=== PATIENT | male | born 1930 | race Caucasian/White ===

== ENCOUNTER 2017-01-13 15:10 | Inpatient (IN) ==
--- NOTE | 2017-01-13 16:26 | Emergency Department Note ---
Arrival - Arrival Chief Complaint: Abdominal / Flank Pain Stated Complaint: VOMITING, STOMACH PAIN, SEVERE DIARRHEA ED Nursing Triage Note: N/V/D ABD PAIN ONSET THIS AM, TRANSFERRED POV FROM [facility] DUE TO HERNIA Mode of Arrival: Wheelchair Limitations: No Limitations Source: Patient Time Seen by Provider: 01/13/17 16:23 - History of Present Illness HPI Narrative: This 86-year-old white male presents with a history of 2 bouts of diarrhea last night followed by intense GI vomiting and right lower abdomen abdominal pain. His evaluation at [facility] revealed an incarcerated right inguinal hernia causing a small bowel obstruction. For this reason he was referred on to us. Notable on arrival here is a resolution of all symptoms. Currently he appears stable and pain-free. Onset (ago): hour(s) (Patient presents 24 hours post onset of symptoms) Allergies/Adverse Reactions: Allergies Allergy/AdvReac Type Severity Reaction Status Date / Time No Known Allergies Allergy Verified 01/13/17 15:48 Home Medications: Home Medications Medication Instructions Recorded Confirmed Type Atorvastatin [Lipitor] 10 mg PO DAILY 02/23/15 09/04/15 History Isosorbide Mononitrate [Imdur] 30 mg PO DAILY 02/23/15 09/04/15 History Probenecid [Benemid] 1,000 mg PO BID 02/23/15 09/04/15 History Terazosin HCl 10 mg PO BEDTIME 02/23/15 09/04/15 History Apixaban [Eliquis] 5 mg PO BID #60 tablet 02/25/15 09/04/15 Rx Aspirin EC Tab 81 mg PO DAILY tablet 02/25/15 09/04/15 Rx Magnesium Chloride [Slow Mag] 64 mg PO DAILY tablet 02/25/15 09/04/15 Rx Sotalol [Betapace] 80 mg PO BID #60 tablet 02/25/15 09/04/15 Rx Ciprofloxacin Tab [Cipro Tab] 500 mg PO Q12HR #20 tablet 09/04/15 Rx Cyanocobalamin/Folic AC/Vit B6 1 each PO DAILY 09/04/15 09/04/15 History [Folbic Tablet] Finasteride [Finasteride] 1 tablet PO DAILY 09/04/15 09/04/15 History Phenazopyridine [Pyridium] 95 mg PO TID W/MEALS #30 tablet 09/04/15 Rx Review of System - Review of System Gastrointestinal: Present: as per HPI Medical,Surgical,& Family Hx - Medical History Cardio: History of: Cardiac Dysrhythmia (atrial fibrillation on eliquis), CAD ( remote history of a coronary stent), Hypertension HEENT: History of: Eye Problem (WEARS GLASSES), HEENT Problems (NOSE BLEEDS) Rheumatology: History of;: Gout, Rheumatological Problems Gastrointestinal: History of: Polyps Hematology: History of: Anemia (BORDERLINE) - Surgical History Cardiac Surgeries: Sugical HX of: Cardiac Catheterization (STENTS) HEENT Surgeries: Surgical HX of: Tonsilectomy & Adenoidectomy Abdominal Surgeries: Surgical HX of: Cholecystectomy, Colonoscopy Orthopedic Surgeries: Surgical HX of;: Total Knee Replacement (RIGHT KNEE) - Family History Family History: Reports;: Family Cancer, Family Diabetes, Family Heart Disease, Family Hypertension Denies;: Family Stroke - Social History Smoking Status: Never smoker Exam Physical Examination: GENERAL: Well developed, well nourished elderly white male in no acute distress. HEENT: Normocephalic. No trauma. Moist mucous membranes. EOMI. PERRLA. ENT NML NECK: Supple. No adenopathy. CARDIAC: Regular. No murmurs. Heart rate 71 CHEST: Clear to auscultation. No respiratory distress. O2 sat 96% ABDOMEN: Soft. Nontender. No palpable right inguinal mass. Hypoactive bowel sounds. EXTREMITIES: No trauma. Normal ROM. No pedal edema. SKIN: No diaphoresis. No rash. NEURO: Alert. Neuro intact. No focal deficits. Vital Signs: Vital Signs Temperature 97.9 F 01/13/17 15:39 Pulse Rate 71 01/13/17 15:39 Respiratory Rate 18 01/13/17 15:39 Blood Pressure 158/74 01/13/17 15:39 O2 Sat by Pulse Oximetry 96 01/13/17 15:39 Course - Reevaluation(s) Reevaluation #1: Advised patient he will be admitted for further evaluation - Consultations Consultation #1: Discussed with Dr. Dover who will evaluate the patient after admission Results - Labs Labs: Lab per [facility] reveals sodium 147, BUN 818, creatinine 1.1, sodium 143, potassium 4.1, lipase 221, white blood cell count 9000, hematocrit 38, INR 0.97 - Diagnostic Findings Procedure: CT Abdomen and Pelvis: image reviewed by me, report reviewed by me ( Per [facility] distal small bowel obstruction due to large right inguinal hernia containing nondistended small bowel and fluid, small left anterior lateral abdominal wall hernia containing a short nondistended segment of small bowel and some fat as well as colonic diverticulosis) Disposition Clinical Impression: Right inguinal hernia, Left abdominal wall hernia, Atrial fibrillation, Hypertension, Renal stone disease, CAD post stents, Hyperlipidemia, Prostatic hypertrophy Case discussed with: patient, patient's family Disposition: Still a Patient Condition: Stable Time of Disposition: 16:38
[2017-01-13] MEDS ORDERED: ONDANSETRON 4 MG/2 ML VIAL IV PRN (16:40)
[2017-01-13 16:43] LABS: Basophils % 0.3 % (0.0-0.8); Eosinophils % 0.2 % (0.00-10.9); Hematocrit 37.7 VOL% (42.0-52.0); Hemoglobin 13.5 GM/DL (14.0-18.0); Immature Granulocytes % 0.5 %; Immature Granulocytes Absolute 0.04 #; Lymphocytes # 1.2 10*3/uL (1.4-4.0); Lymphocytes % 14.1 % (21.2-54.2); Mean Corpuscular HGB Conc 35.8 GM/DL (32-36); Mean Corpuscular Hemoglobin 34 PG (27-34); Mean Corpuscular Volume 95.9 FL (87-102); Mean Platelet Volume 9.5 FL (9.6-12.0); Monocytes # 0.6 10*3/uL (0.11-0.8); Monocytes % 6.8 % (1.7-12.7); Neutrophils # 6.9 10*3/uL (1.4-7.4); Neutrophils % 78.1 % (38.7-73.9); Platelet Count 127 T/CUMM (130-400); Red Blood Count 3.93 MC/CUMM (3.8-5.5); Red Cell Distribution Width 13.2 % (9.3-17.3); White Blood Count 8.8 T/CUMM (4-12)
--- NOTE | 2017-01-13 17:01 | EKG Report ---
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
[2017-01-13 17:03] LABS: Lactic Acid 0.8 MMOL/L (0.4-2.0)
[2017-01-13 17:04] LABS: Albumin 3.2 G/DL (3.4-5.0); Bilirubin,Total 0.5 MG/DL (0.2-1.0); Calcium 8.7 MG/DL (8.5-10.1); Osmolality,Calculated 284.1 MOS/KG (273-304); Total Protein 6.6 G/DL (6.4-8.3)
--- NOTE | 2017-01-13 17:04 | XRay Report ---
History: Shortness of breath Date: 01/13/2017 Study: Chest x-ray AP portable Comparison exam: July 08, 2015 The cardiac silhouette is upper normal. There is no mediastinal mass. The pulmonary vasculature is not engorged. There is some minor platelike subsegmental atelectasis or scar in the right lower lung. The lungs and pleural spaces are otherwise clear. Shallow breath. Osseous structures are unchanged. Degenerative changes of the shoulders are present, with probable chronic rotator cuff injury bilaterally. Impression: Minor platelike scar or atelectasis right lung base. No definite acute process compared to the previous study otherwise PROCEDURE INTERPRETED AT [facility] DEPARTMENT OF RADIOLOGY Final Report Signed by: Dr. Princess Roberts
--- NOTE | 2017-01-13 18:27 | General Surg History&Physical ---
Assessment and Plan - Time spent with patient Time spent with patient: Greater than 30 minutes (1) Incarcerated right inguinal hernia Status: Acute Assessment and plan: He had bowel obstruction from an incarcerated running hernia which is since reduced. I can feel bowel moving in and out of the hernia. His testicle is in a normal position. It is nontender and he has no abdominal tenderness now. I doubt that he had a strangulated or gangrenous bowel. Patient would like to have this repaired which I think is reasonable. He does have associated comorbidities including coronary artery disease and atrial fibrillation. His last dose of Eliquis was about 48 hours ago. He regularly sees Dr. ahuja. We can consult cardiology in the morning if they feel he is an acceptable risk for surgery with going ahead and repairing his inguinal hernia prevent recurrence. Procedure and risks were outlined in great detail including preoperative complications related to his comorbidities also the infection, bleeding, hematoma, chronic pain, recurrence, mesh complications, etc. he understands these risks and wishes to proceed Current Visit: Yes (2) Paroxysmal atrial fibrillation Status: Acute Assessment and plan: We will hold his Eliquis and consult cardiology. If they feel he is an acceptable risk for surgery we can go ahead probably tomorrow. Current Visit: No History of Present Illness Chief complaint: Abdominal pain History of present illness: Mr. Mayfield is a 86 year old male Who has had a known right inguinal hernia for years. He suddenly had abdominal pain nausea and vomiting today. His pain was sudden onset. He went to the [place] emergency room where a CT scan was obtained showing an incarcerated right inguinal hernia containing small bowel associated small bowel obstruction. After he was transferred here his pain suddenly resolved and his hernia reduced spontaneously he has no abdominal pain now and no nausea or vomiting. He describes the pain as being severe and cramping and mostly in the right upper quadrant. He states that it felt better if he laid flat and went away when he laid flat. Home Medications Medication Instructions Recorded Confirmed Type Atorvastatin [Lipitor] 10 mg PO DAILY 02/23/15 09/04/15 History Isosorbide Mononitrate [Imdur] 30 mg PO DAILY 02/23/15 09/04/15 History Probenecid [Benemid] 1,000 mg PO BID 02/23/15 09/04/15 History Terazosin HCl 10 mg PO BEDTIME 02/23/15 09/04/15 History Apixaban [Eliquis] 5 mg PO BID #60 tablet 02/25/15 09/04/15 Rx Aspirin EC Tab 81 mg PO DAILY tablet 02/25/15 09/04/15 Rx Magnesium Chloride [Slow Mag] 64 mg PO DAILY tablet 02/25/15 09/04/15 Rx Sotalol [Betapace] 80 mg PO BID #60 tablet 02/25/15 09/04/15 Rx Ciprofloxacin Tab [Cipro Tab] 500 mg PO Q12HR #20 tablet 09/04/15 Rx Cyanocobalamin/Folic AC/Vit B6 1 each PO DAILY 09/04/15 09/04/15 History [Folbic Tablet] Finasteride [Finasteride] 1 tablet PO DAILY 09/04/15 09/04/15 History Phenazopyridine [Pyridium] 95 mg PO TID W/MEALS #30 tablet 09/04/15 Rx Allergies Allergy/AdvReac Type Severity Reaction Status Date / Time No Known Allergies Allergy Verified 01/13/17 15:48 Medical,Surgical,& Family Hx - Medical History Cardio: History of: Cardiac Dysrhythmia (atrial fibrillation on eliquis), CAD ( remote history of a coronary stent), Hypertension HEENT: History of: Eye Problem (WEARS GLASSES), HEENT Problems (NOSE BLEEDS) Rheumatology: History of;: Gout, Rheumatological Problems Gastrointestinal: History of: Polyps Hematology: History of: Anemia (BORDERLINE) - Surgical History Cardiac Surgeries: Sugical HX of: Cardiac Catheterization (STENTS) HEENT Surgeries: Surgical HX of: Tonsilectomy & Adenoidectomy Abdominal Surgeries: Surgical HX of: Cholecystectomy, Colonoscopy Orthopedic Surgeries: Surgical HX of;: Total Knee Replacement (RIGHT KNEE) - Family History Family History: Reports;: Family Cancer, Family Diabetes, Family Heart Disease, Family Hypertension Denies;: Family Stroke - Social History Smoking Status: Never smoker Exam - Constitutional Vitals: Period Temp Pulse Resp BP Sys/Restrepo Pulse Ox Last 24 Hr 97.9 F-97.9 F 64-73 18-18 150-168/72-90 95-97 General appearance: no acute distress - Head Head exam: Present: normocephalic - Eye Eye exam: Absent: scleral icterus - ENT Mouth exam: Present: normal voice - Neck Neck exam: Present: trachea midline. Absent: tenderness - Respiratory Respiratory exam: Present: clear to auscultation bilaterally. Absent: accessory muscle use - Cardiovascular Cardiovascular exam: Present: RRR - GI/Abdominal GI/Abdominal exam: Present: hernia (Reducible right inguinal region), soft. Absent: distended, guarding, mass, tenderness, rebound - Extremities Exam Extremities exam: Absent: edema - Neurological Exam Neurological exam: Present: alert, oriented X3. Absent: motor sensory deficit Speech: Present: normal - Skin Skin exam: Present: normal color - Constitutional Constitutional: Absent: anorexia, chills, fever(s), weight loss - Cardiovascular Cardiovascular: Absent: chest pain at rest, chest pain with activity, dyspnea, dyspnea on exertion, syncope - Respiratory Respiratory: Absent: dyspnea, hemoptysis, dyspnea on exertion - Gastrointestinal Gastrointestinal: Present: abdominal pain, bloating, cramping, diarrhea, nausea , vomiting. Absent: hematemesis, hematochezia, melena, jaundice - Genitourinary Genitourinary: Absent: hematuria - Musculoskeletal Musculoskeletal: Present: back pain - Neurological Neurological: Absent: focal weakness, syncope - Endocrine Endocrine: Absent: polyuria Hematologic/Lymphatic: Present: easy bleeding, easy bruising Results - Labs CBC & BMP: 01/13/17 16:25 01/13/17 16:25 Lab Results: I have reviewed the past 24 hour labs
[2017-01-13] MEDS: FINASTERIDE 5 MG TABLET PO SCH (20:50)
[2017-01-13] MEDS ORDERED: ATORVASTATIN 10 MG TABLET PO SCH (21:00)
[2017-01-13] MEDS ORDERED: TERAZOSIN 5 MG CAPSULE PO SCH (21:00)
--- NOTE | 2017-01-14 07:33 | General Surgery Progress Note ---
Assessment and Plan (1) Incarcerated right inguinal hernia Status: Acute Assessment and plan: He had bowel obstruction from an incarcerated running hernia which is since reduced. I can feel bowel moving in and out of the hernia. His testicle is in a normal position. It is nontender and he has no abdominal tenderness now. I doubt that he had a strangulated or gangrenous bowel. Patient would like to have this repaired which I think is reasonable. He does have associated comorbidities including coronary artery disease and atrial fibrillation. His last dose of Eliquis was about 48 hours ago. He regularly sees Dr. ahuja. We can consult cardiology in the morning if they feel he is an acceptable risk for surgery with going ahead and repairing his inguinal hernia prevent recurrence. Procedure and risks were outlined in great detail including preoperative complications related to his comorbidities also the infection, bleeding, hematoma, chronic pain, recurrence, mesh complications, etc. he understands these risks and wishes to proceed 01/14: He feels much better. He denies abdominal pain. He needs right inguinal hernia repair if it is okay with cardiology. We have consulted cardiology this morning. They feel that he is acceptable risk for surgery I could proceed today. If they need any cardiac evaluation or workup I think it is safe to delay his surgery if needed. Current Visit: Yes (2) Paroxysmal atrial fibrillation Status: Acute Assessment and plan: We will hold his Eliquis and consult cardiology. If they feel he is an acceptable risk for surgery we can go ahead probably tomorrow. Current Visit: No Subjective Patient reports: Present: feels better, pain is less. Absent: nausea, vomiting Exam - Constitutional Vitals: Period Temp Pulse Resp BP Sys/Restrepo Pulse Ox Last 24 Hr 97.0 F-98.9 F 64-77 18-18 122-168/57-90 93-99 General appearance: no acute distress - Respiratory Respiratory exam: Absent: accessory muscle use - GI/Abdominal GI/Abdominal exam: Present: soft. Absent: distended, tenderness Results - Labs CBC & BMP: 01/13/17 16:25 01/13/17 16:25 Quality Measures - VTE Contraindication to Pharmacological VTE Prophylaxis: Already on Theraputic Agent , No Prophylaxis Needed
--- NOTE | 2017-01-14 10:34 | Cardiology Consult Note ---
Mariano Lam April RN, am scribing for, and in the presence of, Dustin Sharif MD 10:29. Assessment and Plan - Time spent with patient Time spent with patient: Greater than 30 minutes (Due to assessment, planning, documentation, medication review) (1) Preoperative cardiovascular examination Status: Acute Current Visit: Yes (2) Hypertension Status: Chronic Assessment and plan: Home blood pressure medications have been restarted. Blood pressure is stable. Current Visit: Yes (3) Chronic anticoagulation Status: Chronic Assessment and plan: This is currently on hold in anticipation of surgery. Current Visit: Yes (4) Incarcerated right inguinal hernia Status: Acute Assessment and plan: This is being followed by Dr. Jazzmine SIMMS. Current Visit: Yes (5) Coronary disease Status: Chronic Assessment and plan: Patient is without chest pain, EKG without any acute changes. Current Visit: Yes Qualifiers: Coronary Disease-Associated Artery/Lesion type: [place] artery [place] vs. transplanted heart: [place] heart Associated angina: without angina Qualified Code(s): I25.10 - Atherosclerotic heart disease of [place] coronary artery without angina pectoris (6) Hyperlipidemia Status: Chronic Assessment and plan: Takes Lipitor 10 mg daily, this has been continued. Current Visit: Yes (7) Paroxysmal atrial fibrillation Status: Chronic Assessment and plan: He is currently in sinus rhythm. Current Visit: No History of Present Illness - Data of Consult Patient: known to practice within the last 3 years Consult date: 01/13/17 Requesting Physician: Josh Dover III. 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 Denis Rodrigues Mr. Mayfield is a 86 year old male with a history of CAD, dyslipidemia, hypertension, paroxysmal atrial fibrillation, and kidney stone. He is anticoagulated on Eliquis. This has been decreased to 2.5 mg Saturday and Saturday because of recent nosebleeds. He denies any nosebleeds since having this does decreased. He had heart catheterization April 26, 2003 with stenting of the junction of the mid and distal LAD, the mid LAD, and the proximal LAD. Heart catheterization February 27, 2005 with stent to the junction of the mid to distal LAD (in-stent restenosis), proximal LAD (in-stent restenosis), and stent of the left circumflex marginal. I cannot find record of a stress test, but he said he had one with Dr. Cody about 3 years ago and was told it was okay. Echocardiogram done April 13, [address] Cody[address] office with ejection fraction of greater than 55%. 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 Family history is positive for father with ND, mother with diabetes hypertension and cancer, son with heart disease and cancer, daughter with diabetes, and brother with heart disease. He reports he is a non-smoker, stating he quit 30 years ago. Mr. Mayfield presented to the emergency department at [facility] yesterday with complaints of right lower abdominal pain, diarrhea, and vomiting. His evaluation at [facility] revealed an incarcerated right inguinal hernia causing a small bowel obstruction and he was referred here to [facility]. We have been asked to see him preoperatively. EKG showed sinus rhythm with heart rate of 67. Chest x-ray was without any acute changes. His blood pressures were elevated yesterday afternoon, but these have improved throughout the night. He denies any chest pain, shortness of breath, palpitations, or dizziness. 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 I have discussed in detail the particulars of this case and I have examined the patient and reviewed the patient's chart both current and old. I was directly involved in the patient's evaluation and management and I completely agree with we will thank you Sandra Quintana RN regarding this patient's evaluation and treatment plan. He is clear for surgery and we will follow closely. CC: Josh Dover III., - Home Medications and Allergies Home Medications: Home Medications Medication Instructions Recorded Confirmed Type Atorvastatin [Lipitor] 10 mg PO DAILY 02/23/15 01/14/17 History Probenecid [Benemid] 1,000 mg PO BID 02/23/15 01/14/17 History Terazosin HCl 10 mg PO BEDTIME 02/23/15 01/14/17 History Aspirin EC Tab 81 mg PO DAILY tablet 02/25/15 01/14/17 Rx Sotalol [Betapace] 80 mg PO BID #60 tablet 02/25/15 01/14/17 Rx Apixaban [Eliquis] 2.5 mg PO DIRECTED 01/14/17 01/14/17 History Magnesium Chloride [Slow Mag] 128 mg PO DAILY 01/14/17 01/14/17 History Allergies/Adverse Reactions: Allergies Allergy/AdvReac Type Severity Reaction Status Date / Time No Known Allergies Allergy Verified 01/13/17 15:48 - Constitutional Constitutional: Present: as per HPI - EENT Eyes: Present: requires corrective lense. Absent: blurry vision Ears: Present: decreased hearing, tinnitus. Absent: ear pain Nose, mouth and throat: Absent: dysphagia, epistaxis, headache(s), neck pain - Cardiovascular Cardiovascular: Present: edema. Absent: chest pain at rest, chest pain with activity, dyspnea, dyspnea on exertion, radiating jaw, neck or arm pain, lightheadedness, orthopnea, palpitations - Respiratory Respiratory: Present: cough. Absent: dyspnea, hemoptysis, dyspnea on exertion, wheezing - Gastrointestinal Gastrointestinal: Present: abdominal pain, diarrhea, nausea, vomiting. Absent: constipation, hematemesis, hematochezia, melena - Genitourinary Genitourinary: Absent: difficulty urinating, dysuria, hematuria - Musculoskeletal Musculoskeletal: Present: limited range of motion, muscle weakness. Absent: back pain - Neurological Neurological: Present: abnormal gait. Absent: confusion, dizziness, focal weakness, frequent falls, headache(s), syncope - Psychiatric Psychiatric: Absent: anxiety, depression - Endocrine Endocrine: Present: fatigue - Hematologic/Lymphatic Hematologic/Lymphatic: Present: easy bruising. Absent: easy bleeding Medical,Surgical,& Family Hx - Medical History Cardio: History of: Cardiac Dysrhythmia (Paroxysmal atrial fibrillation on eliquis), CAD, Hypertension HEENT: History of: Eye Problem (WEARS GLASSES) Endocrine: History of: Dyslipidemia Rheumatology: History of;: Gout, Rheumatological Problems Genitourinary: History of: Kidney Stones Gastrointestinal: History of: Diverticulitis/ Diverticulosis, Polyps Hematology: History of: Anemia (BORDERLINE) - Surgical History Cardiac Surgeries: Sugical HX of: Cardiac Catheterization (STENTS) HEENT Surgeries: Surgical HX of: Tonsilectomy & Adenoidectomy Abdominal Surgeries: Surgical HX of: Cholecystectomy, Colonoscopy Orthopedic Surgeries: Surgical HX of;: Total Knee Replacement (RIGHT KNEE) Additional Surgical History: 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 - Family History Family History: Reports;: Family Cancer, Family Diabetes, Family Heart Disease, Family Hypertension Denies;: Family Stroke - Social History Smoking Status: Never smoker (Quit 30 years ago) Have you smoked in the last 12 months: No Frequency of Alcohol Use: None Type of Drug Use: None Lives With:: Alone Functional capacity: uses cane/walker Physical Examination Vital Signs Temp Pulse Resp BP Pulse Ox 97.9 F 71 18 158/74 96 01/13/17 15:39 01/13/17 15:39 01/13/17 15:39 01/13/17 15:39 01/13/17 15:39 General: Present: Appears Well, No Apparent Distress HEENT: Present: PERRL, Mucus Membranes Moist Neck: Present: Supple Neck, Midline Trachea, No Bruit Cardiac: Present: Reg Rate and Rhythm, Systolic Murmur. Absent: Tachycardia, Bradycardia Lungs: Present: Normal Breath Sounds, No Wheeze, Rales, Rhonchi Neuro: Absent: Resting Tremor, Essential Tremor Abdomen: Present: Soft, Active Bowel Sounds, Non-Tender. Absent: Distended Skin: Present: Bruising. Absent: Rash, Suspicious Lesions Extremities: Present: Normal Upper Extr. Pulses, Normal Lower Extr. Pulses, Edema (To left lower extremity) Result/EKG - Labs CBC & BMP: 01/13/17 16:25 01/13/17 16:25 Lab Results: I have reviewed the past 24 hour labs Labs: Laboratory Results - last 24 hr 01/13/17 01/13/17 01/13/17 16:25 16:25 16:25 WBC 8.8 RBC 3.93 Hgb 13.5 L Hct 37.7 L MCV 95.9 MCH 34 MCHC 35.8 RDW 13.2 Plt Count 127 L MPV 9.5 L Neut % (Auto) 78.1 H Lymph % (Auto) 14.1 L [place] % (Auto) 6.8 Eos % (Auto) 0.2 Baso % (Auto) 0.3 Neut # (Auto) 6.9 Lymph # (Auto) 1.2 L [place] # (Auto) 0.6 Eos # (Auto) 0.0 Baso # (Auto) 0.0 Immature Gran % 0.5 Nucleated RBC % 0.0 Immature Gran # 0.04 Nucleated RBCs # 0.00 Immature Plt Fraction 0.0 Sodium 142 Potassium 4.0 Chloride 110 H Carbon Dioxide 27 Anion Gap 9.0 BUN 17 Creatinine 1.00 GFR Calculation 88 BUN/Creatinine Ratio 17.00 Glucose 95 Calculated Osmolality 284.1 Lactic Acid 0.8 Calcium 8.7 Total Bilirubin 0.50 AST 15 ALT 17 Alkaline Phosphatase 63 Total Protein 6.6 Albumin 3.2 L Globulin 3.4 Albumin/Globulin Ratio 0.9 L Lipase 214.0 - Diagnostic Findings Procedure: Chest x-ray: report reviewed by me - EKG EKG results: interpreted by me EKG shows: sinus rhythm Quality Measures - VTE Contraindication to Pharmacological VTE Prophylaxis: Already on Theraputic Agent , No Prophylaxis Needed Kole Lam Wesley, MD, personally performed the services described in this documentation, ascribed by Sandra Quintana RN in my presence, and it is both accurate and complete .
[2017-01-14] MEDS: ISOSORBIDE MONONITRATE 30 MG TABLET PO SCH (11:44)
[2017-01-14] MEDS ORDERED: TISSUE ADHESIVE 1 EACH APPLICATOR TOP ONE (12:08)
[2017-01-14] MEDS ORDERED: LIDOCAINE 1%/EPI INJ 20 ML VIAL ONE (12:09)
[2017-01-14] MEDS ORDERED: BUPIVACAINE MPF 0.25% /EPI 30 ML VIAL ONE (12:09)
[2017-01-14] MEDS ORDERED: PROPOFOL 200 MG/20 ML VIAL IV ONE (12:21)
[2017-01-14] MEDS ORDERED: GLYCOPYRROLATE 0.4 MG/2 ML VIAL ONE (12:21)
[2017-01-14] MEDS ORDERED: PHENYLEPHRINE 1 MG/10 ML SYRINGE IV ONE (12:21)
[2017-01-14] MEDS ORDERED: LIDOCAINE 2% 5 ML VIAL ONE (12:21)
[2017-01-14] MEDS ORDERED: ONDANSETRON 4 MG/2 ML VIAL ONE (12:21)
--- NOTE | 2017-01-14 13:26 | Operative Note ---
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 After successful induction of general anesthesia the patient's abdomen and right groin were prepped and draped in usual sterile fashion. Patient had a large nonreducible mass in his right lower quadrant abdominal wall pannus just below the pannus extending into the upper scrotum. Local anesthesia was infiltrated and a transverse incision made and sharp dissection carried down to the mass which appeared to represent a hernia sac and associated herniated preperitoneal fat and cord lipoma. This was about the size of a grapefruit. This was dissected back to the external ring which was large and attenuated. The external oblique fascia was opened along the length of its fibers exposing the contents of the inguinal canal. The hernia sac was dissected away from the cord structures and appeared to contain bladder likely in its medial wall. Bowel and the sac were reduced back into the abdominal cavity. I then took a precut piece of pro-temple meat cutter polypropylene mesh and laid this in trended in the inguinal floor. It measured at 8 x 12 cm. It was sutured medially at the pubic tubercle with 2-0 Prolene suture and inferior the shelving edge of inguinal ligament with interrupted 2-0 Prolene suture. The upper aspect of the mesh was undermined well up under the external oblique fascia to the lateral border the rectus sheath. The external oblique fascia was closed over the repair with running 2-0 Prolene suture. Local anesthesia was infiltrated further. The Emler's fascia was approximated with Vicryl suture and the skin closed with skin clips. Anesthesia: GETA, local Surgeon / Physician: Josh Dover III. Estimated blood loss: minimal Specimens: other (Large cord lipoma) Condition: stable Disposition: PACU Results - Labs CBC & BMP: 01/13/17 16:25 01/13/17 16:25 Discharge Plan - Discharge Medications No Action Terazosin HCl 10 mg PO BEDTIME Probenecid [Benemid] 1,000 mg PO BID Atorvastatin [Lipitor] 10 mg PO DAILY Aspirin EC Tab 81 mg PO DAILY tablet Sotalol [Betapace] 80 mg PO BID #60 tablet Apixaban [Eliquis] 2.5 mg PO DIRECTED Magnesium Chloride [Slow Mag] 128 mg PO DAILY - Follow Up or Referral - Forms/Instructions
[2017-01-14] MEDS ORDERED: fentaNYL 100 MCG/2 ML VIAL ONE (13:47)
[2017-01-14] MEDS ORDERED: SEVOFLURANE 1 UNIT/15 MINUTE INH ONE (13:47)
[2017-01-14] MEDS ORDERED: ePHEDrine 50 MG/ML AMP ONE (13:48)
[2017-01-14] MEDS: METOPROLOL TARTRATE 5 MG/5 ML VIAL IV SCH ×2 (13:55→15:06)
[2017-01-14] MEDS ORDERED: METOPROLOL TARTRATE 5 MG/5 ML VIAL IV ONE (14:02)
--- NOTE | 2017-01-14 14:30 | Anesthesia Post-Op ---
Anesthesia Post OP - Post Ansesthetic Evaluation Patient seen in post op: Yes Resp: within normal limits CV: within normal limits Mental: within normal limits Temp: within normal limits [id number]: within normal limits Nausea and Vomiting: within normal limits Pain: within normal limits
[2017-01-14] MEDS: HYDROmorphone 2 MG/1 ML VIAL IV PRN ×2 (15:24→22:33)
[2017-01-14] MEDS: SOTALOL 80 MG TABLET PO SCH (20:50)
[2017-01-14] MEDS: PROBENECID 500 MG TABLET PO SCH (20:50)
[2017-01-14] MEDS: FINASTERIDE 5 MG TABLET PO SCH (20:51)
[2017-01-14] MEDS ORDERED: TERAZOSIN 5 MG CAPSULE PO SCH (21:00)
--- NOTE | 2017-01-15 06:57 | Event Note ---
He feels well. He has minimal pain. He no longer feels bulging in his groin. He has had some difficulty voiding. We will check postvoid residual.
[2017-01-15] MEDS: SOTALOL 80 MG TABLET PO SCH (08:07)
[2017-01-15] MEDS: ISOSORBIDE MONONITRATE 30 MG TABLET PO SCH (08:08)
[2017-01-15] MEDS: PROBENECID 500 MG TABLET PO SCH (08:09)
--- NOTE | 2017-01-15 08:34 | EKG Report ---
Stationary ECG Study [facility] Test Date: 01/15/2017 8:32:36 AM Pat Name: NADIRA JIMENES Department: Room: 343 Gender: M Tribunal Member: KRIS : [id number] Requested by: Pritesh Sharif Order Number: [id number] Yanira MD: PRITESH SHARIF Intervals [place] Rate: 78 P: 48 NH: 173 QRS: 41 QRSD: 108 T: -1 QT: 415 QTc: 448 Interpretive Statements SINUS RHYTHM WITH SINUS ARRHYTHMIA Electronically Signed On 01-15-17 08:38:41 CDT by PRITESH SHARIF [email or web address]
[2017-01-15] MEDS ORDERED: MAGNESIUM CHLORIDE 64 MG TABLET PO SCH (09:00)
[2017-01-15] MEDS ORDERED: ASPIRIN EC 81 MG TABLET PO SCH (09:00)
[2017-01-15] MEDS ORDERED: ATORVASTATIN 10 MG TABLET PO SCH (09:00)
[2017-01-15] MEDS ORDERED: POLYETHYLENE GLYCOL POWDER 17 GM PACK PO PRN (10:04)
[2017-01-15 10:25] LABS: Basophils % 0.3 % (0.0-0.8); Eosinophils % 0.3 % (0.00-10.9); Hematocrit 32.3 VOL% (42.0-52.0); Hemoglobin 11.6 GM/DL (14.0-18.0); Immature Granulocytes % 0.4 %; Immature Granulocytes Absolute 0.05 #; Lymphocytes # 1.5 10*3/uL (1.4-4.0); Lymphocytes % 12.8 % (21.2-54.2); Mean Corpuscular HGB Conc 35.9 GM/DL (32-36); Mean Corpuscular Hemoglobin 35 PG (27-34); Mean Corpuscular Volume 96.4 FL (87-102); Mean Platelet Volume 9.6 FL (9.6-12.0); Monocytes # 1.1 10*3/uL (0.11-0.8); Monocytes % 9.6 % (1.7-12.7); Neutrophils # 8.8 10*3/uL (1.4-7.4); Neutrophils % 76.6 % (38.7-73.9); Platelet Count 116 T/CUMM (130-400); Red Blood Count 3.35 MC/CUMM (3.8-5.5); Red Cell Distribution Width 13.2 % (9.3-17.3); White Blood Count 11.5 T/CUMM (4-12)
--- NOTE | 2017-01-15 11:25 | Pathology Report from [facility] ---
[facility] ACCESSION # : [id number] PATIENT NAME : Nadira Jimenes ORDERING DR : MAYNOR HANKS III, MD CLINICAL HX: Right groin incarcerated inguinal hernia POST-OP DX: Same SPECIMEN INFO: Right groin cord lipoma GROSS DESCRIPTION: The specimen is received in formalin labeled with the patients name and consists of a 7.5 x 4.2 x 1.0 cm yellow-pink adipose tissue fragment. Director Of Student Affairs sections submitted in one cassette. DIAGNOSIS FOR NADIRA JIMENES: RIGHT INGUINAL HERNIA REPAIR: Groin lipoma with congestion. COLLECTED DATE: 01/14/2017 [facility] REPORT DATE: 01/15/2017 ELECTRONICALLY SIGNED BY: Henry Velasco M.D. 01/15/2017 - 10:19:40 [facility]
[2017-01-15 11:50] LABS: Apearance,Urine CLEAR (Clear); Bilirubin,Urine Negative (Negative); Blood, Urine Negative (Negative); Glucose,Urine (UA) Negative (Negative); Ketones,Urine Negative (Negative); Mucus,Urine Occasional /LPF (Occasional); Nitrite,Urine Negative (Negative); Protein,Urine Negative; RBC,Urine 1 /HPF (0-4); Urine Color Yellow (Yellow); Urine Specific Gravity 1.008 (1.001-1.035); Urine Urobilinogen < 2.0 EU/DL (0.2-1.0); WBC,Urine 1 /HPF (0-6)
--- NOTE | 2017-01-15 14:01 | Discharge Summary ---
Hospital Course - Hospital Course Hospital Course: Patient is an 86-year-old male who underwent repair of incarcerated inguinal hernia. Postoperatively, he progressed well with adequate pain management, tolerance of oral intake, voiding without difficulty passing flatus without difficulty. He initially felt he was having incomplete emptying of his bladder , but this resolved. Postvoid residual was negative and urinalysis was without findings. Cardiology consultation was obtained as the patient had a past medical history of paroxysmal paroxysmal atrial fibrillation on Eliquis. He reports a reduced dose of 5 mg daily 3 days per week. This was recommended to start upon discharge. No complications to note. Patient was discharged home in good condition with appropriate analgesics, postoperative instructions, and a follow-up appointment Dr. Dover. Follow-up with cardiology Dr. Cody is also recommended. The patient was scheduled for colonoscopy in 1 week. This discussed with gastroenterology who recommended he reschedule for 2-3 weeks following allowing himself to heal adequately. Medication reconciliation notation: The patient was started on Proscar and Imdur by the emergency room physician based on an old medication reconciliation. According to the patient's records and report, he is not taking his medications currently and has not taken them for greater than 1 year. These were discontinued on the discharge medication reconciliation Diagnosis - Discharge Diagnosis (1) Incarcerated right inguinal hernia Status: Acute (2) Chronic anticoagulation Status: Chronic (3) Coronary disease Status: Chronic (4) Paroxysmal atrial fibrillation Status: Chronic Specialty Discharge - Follow Up or Referrals Follow up with: Josh Dover III., MD [Physician] - 01/30/17 1:00 pm (Dr. Chavez will see you on your appointment date) Discharge Plan - Discharge Data Disposition: Disch To Home/Self Care Condition at Discharge: Stable Discharge Diet: heart healthy Activity: no lifting (>5lb), other (Avoid vigorous activity. Avoid aerobic activity) Hygiene: may shower (Starting 2nd day after surgery. Do not soak or submerge wounds. Pat wounds dry. Keep surgical incisions clean, dry and covered) Driving: not until seen by doctor Contact your physician if you experience:: fever over 101, Difficulty voiding, Redness or swelling, Nausea/Vomiting, Bleeding, pain uncontrolled by pain medications Wound / Dressing Care Instructions: Keep surgical incisions clean, dry and covered. - Discharge Medications New HYDROcodone/ACETAMIN 7.5-325 [[place] 7.5-325] 1 tablet PO Q4H PRN #30 tablet PRN Reason: Pain Moderate To Severe (4-10) Continue Terazosin HCl 10 mg PO BEDTIME Probenecid [Benemid] 1,000 mg PO BID Atorvastatin [Lipitor] 10 mg PO DAILY Aspirin EC Tab 81 mg PO DAILY tablet Sotalol [Betapace] 80 mg PO BID #60 tablet Apixaban [Eliquis] 2.5 mg PO DIRECTED Magnesium Chloride [Slow Mag] 128 mg PO DAILY - Follow Up or Referral Follow Up: Josh Dover III., MD [Physician] - 01/30/17 1:00 pm (Dr. Chavez will see you on your appointment date) Hakan Cody MD [Primary Care Provider] - (per cardiology recommendation ) - Forms/Instructions Instructions: Open Herniorrhaphy (DC) Additional Discharge Instructions: Resume taking Eliquis on previously established schedule and dose. Hospital f/u with PCP in 7-10 days Exam - Constitutional Vitals: Period Temp Pulse Resp BP Sys/Restrepo Pulse Ox Last 24 Hr 97.3 F-99.2 F 72-124 13-20 93-157/55-84 92-98 General appearance: no acute distress - Respiratory Respiratory exam: Present: clear to auscultation bilaterally - Cardiovascular Cardiovascular exam: Present: regular rate and rhythm - GI/Abdominal GI/Abdominal exam: Present: normal bowel sounds, soft, other (Surgical dressing clean, dry and intact). Absent: distended, tenderness - Neurological Exam Neurological exam: Present: alert, oriented X3 - Psychiatric Psychiatric exam: Present: normal affect, normal mood - Skin Skin exam: Present: normal color Discharge Results Procedures and tests throughout hospitalization: Pending Orders 01/15/17 16:00 Hemoglobin and Hematocrit Timed Repair of incarcerated right inguinal hernia with polypropylene mesh with Dr. Josh Dover 01/14/2017 Pathology right groin incarcerated inguinal hernia: Groin lipoma with congestion Labs on day of discharge: Labs from last 24 hours 01/15/17 01/15/17 11:23 10:09 WBC 11.5 D RBC 3.35 L Hgb 11.6 L Hct 32.3 L MCV 96.4 MCH 35 H MCHC 35.9 RDW 13.2 Plt Count 116 L MPV 9.6 Neut % (Auto) 76.6 H Lymph % (Auto) 12.8 L [place] % (Auto) 9.6 Eos % (Auto) 0.3 Baso % (Auto) 0.3 Neut # (Auto) 8.8 H Lymph # (Auto) 1.5 [place] # (Auto) 1.1 H Eos # (Auto) 0.0 Baso # (Auto) 0.0 Immature Gran % 0.4 Nucleated RBC % 0.0 Immature Gran # 0.05 Nucleated RBCs # 0.00 Immature Plt Fraction 0.0 Urine Color Yellow Urine Appearance Clear Urine pH 5.0 Ur Specific [place] 1.008 Urine Protein Negative Urine Glucose (UA) Negative Urine Ketones Negative Urine Blood Negative Urine Nitrate Negative Urine Bilirubin Negative Urine Urobilinogen < 2.0 H Urine Leukocytes Negative Urine RBC 1 Urine WBC 1 Urine Mucus Occasional Ur Culture Indicated? Not indicated - Additional Comments Outside chart reviewed DS: Provider Date of admission: 01/13/17 16:38 Primary care physician: Hakan Cody MD Attending physician on admission: Josh Dover III., Consults: 01/13/17 18:41 Consult to Physician [CONS] Routine Comment: Consulting Provider: Consult to Physician [CONS] Routine Comment: Atrial fibrillation needs hernia repair Consulting Provider: Hakan Cody Consulting Provider Notified: Yes When should Consulting Provider be notified: In am Person Notified: herve aman Date Notified: 01/14/17 Time Notified: 09:32 Discharging clinician: Eliane Escobar PA-C
--- NOTE | 2017-01-15 16:01 | Cardiology Progress Note ---
Mariano Lam April RN, am scribing for, and in the presence of, Dustin Sharif MD 16:01. Assessment and Plan (1) Preoperative cardiovascular examination Status: Acute Current Visit: Yes (2) Hypertension Status: Chronic Assessment and plan: Home blood pressure medications have been restarted. Blood pressure is stable. Current Visit: Yes (3) Chronic anticoagulation Status: Chronic Assessment and plan: Eliquis was held because of surgery, this can be restarted as soon as surgery feels it is okay. Current Visit: Yes (4) Incarcerated right inguinal hernia Status: Acute Assessment and plan: He underwent hernia repair January 14. This is being followed by Dr. Jazzmine SIMMS. Current Visit: Yes (5) Coronary disease Status: Chronic Assessment and plan: Patient is without chest pain, EKG without any acute changes. Current Visit: Yes Qualifiers: Coronary Disease-Associated Artery/Lesion type: [place] artery [place] vs. transplanted heart: [place] heart Associated angina: without angina Qualified Code(s): I25.10 - Atherosclerotic heart disease of [place] coronary artery without angina pectoris (6) Hyperlipidemia Status: Chronic Assessment and plan: Takes Lipitor 10 mg daily, this has been continued. Current Visit: Yes (7) Paroxysmal atrial fibrillation Status: Chronic Assessment and plan: He is currently in sinus rhythm. Current Visit: No Cardiology - PN: Subj Interval history: Wireless Sales Representative: Dr. Cody PCP: Dr. Denis Rodrigues Summary: Mr. Mayfield is a 86 year old male with a history of CAD, dyslipidemia , hypertension, paroxysmal atrial fibrillation, and kidney stone. He is anticoagulated on Eliquis. This has been decreased to 2.5 mg Saturday and Saturday because of recent nosebleeds. He denies any nosebleeds since having this does decreased. He had heart catheterization April 26, 2003 with stenting of the junction of the mid and distal LAD, the mid LAD, and the proximal LAD. Heart catheterization February 27, 2005 with stent to the junction of the mid to distal LAD (in-stent restenosis), proximal LAD (in-stent restenosis), and stent of the left circumflex marginal. I cannot find record of a stress test, but he said he had one with Dr. Cody about 3 years ago and was told it was okay. Echocardiogram done April 13, [address] Touchstone's office with ejection fraction of greater than 55%. 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 Family history is positive for father with SC, mother with diabetes hypertension and cancer, son with heart disease and cancer, daughter with diabetes, and brother with heart disease. He reports he is a non-smoker, stating he quit 30 years ago. Mr. Mayfield presented to the emergency department at [facility] January 13 with complaints of right lower abdominal pain, diarrhea, and vomiting. His evaluation at [facility] revealed an incarcerated right inguinal hernia causing a small bowel obstruction and he was referred here to [facility]. We have been asked to see him preoperatively. Initial visit January 14, 2017: EKG showed sinus rhythm with heart rate of 67. Chest x-ray was without any acute changes. His blood pressures were elevated yesterday afternoon, but these have improved throughout the night. He denies any chest pain, shortness of breath, palpitations, or dizziness. 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 January 15, 2017: Mr. Mayfield underwent hernia repair yesterday by Dr. Jazzmine SIMMS. He denies any chest pain, shortness of breath, palpitations, or dizziness. All signs been stable. EKG this morning showed sinus rhythm, heart rate of 78 with no acute changes. He has had some difficulty voiding since surgery, post void residual check has been ordered. I have discussed in detail the particulars of this case and I have examined the patient and reviewed the patient's chart both current and old. I was directly involved in the patient's evaluation and management and I completely agree with Sandra Quitnana RN regarding this patient's evaluation and treatment plan. Exam (Progress Note) - Constitutional Vitals: Period Temp Pulse Resp BP Sys/Restrepo Pulse Ox Last 24 Hr 97.3 F-99.0 F 66-147 13-20 92-157/55-84 92-99 Exam: General: Present: Appears Well, No Apparent Distress HEENT: Present: PERRL, Mucus Membranes Moist Neck: Present: Supple Neck, Midline Trachea, No Bruit Cardiac: Present: Reg Rate and Rhythm, Systolic Murmur. Absent: Tachycardia, Bradycardia Lungs: Present: Normal Breath Sounds, No Wheeze, Rales, Rhonchi Neuro: Absent: Resting Tremor, Essential Tremor Abdomen: Present: Soft, Active Bowel Sounds, Non-Tender. Absent: Distended Skin: Present: Bruising. Absent: Rash, Suspicious Lesions Extremities: Present: Normal Upper Extr. Pulses, Normal Lower Extr. Pulses, Edema (To left lower extremity) Result/EKG - Labs CBC & BMP: 01/15/17 10:09 01/13/17 16:25 Lab Results: I have reviewed the past 24 hour labs Labs: Laboratory Results - last 24 hr 01/15/17 10:09 WBC 11.5 D RBC 3.35 L Hgb 11.6 L Hct 32.3 L MCV 96.4 MCH 35 H MCHC 35.9 RDW 13.2 Plt Count 116 L MPV 9.6 Neut % (Auto) 76.6 H Lymph % (Auto) 12.8 L [place] % (Auto) 9.6 Eos % (Auto) 0.3 Baso % (Auto) 0.3 Neut # (Auto) 8.8 H Lymph # (Auto) 1.5 [place] # (Auto) 1.1 H Eos # (Auto) 0.0 Baso # (Auto) 0.0 Immature Gran % 0.4 Nucleated RBC % 0.0 Immature Gran # 0.05 Nucleated RBCs # 0.00 Immature Plt Fraction 0.0 - EKG EKG results: interpreted by me EKG shows: sinus rhythm Quality Measures - VTE Contraindication to Pharmacological VTE Prophylaxis: Already on Theraputic Agent , No Prophylaxis Needed Specialty Discharge - Follow Up or Referrals Follow up with: Josh Dover III., MD [Physician] - 01/30/17 1:00 pm (Dr. Chavez will see you on your appointment date) Hakan Cody MD [Primary Care Provider] - (per cardiology recommendation ) I, Dustin Sharif MD, personally performed the services described in this documentation, ascribed by Sandra Quintana RN in my presence, and it is both accurate and complete 601 .
[2017-01-15 16:28] VITALS: BP 131/61
== END 2017-01-15 17:27 | disposition home or self-care (01) | DRG 352 ==
LOC: N.ED 15:10 → N.EDINP 16:38 → N.3E 18:39
PROVIDERS: ADMIT Surgery; ATTEND Surgery

== ENCOUNTER 2018-10-26 10:31 | Observation (INO) ==
[2018-10-26 11:10] LABS: Basophils % 0.6 % (0.0-0.8); Eosinophils # 0.1 10*3/uL (0.0-0.87); Eosinophils % 1.9 % (0.00-10.9); Hematocrit 33.4 VOL% (42.0-52.0); Hemoglobin 11.2 GM/DL (14.0-18.0); Immature Granulocytes % 0.3 %; Immature Granulocytes Absolute 0.02 #; Lymphocytes # 1.4 10*3/uL (1.4-4.0); Lymphocytes % 22.5 % (21.2-54.2); Mean Corpuscular HGB Conc 33.5 GM/DL (32-36); Mean Corpuscular Volume 97.9 FL (87-102); Mean Platelet Volume 9.2 FL (9.6-12.0); Neutrophils % 65.7 % (38.7-73.9); Platelet Count 159 T/CUMM (130-400); Red Blood Count 3.41 MC/CUMM (3.8-5.5); Red Cell Distribution Width 13.9 % (9.3-17.3); White Blood Count 6.4 T/CUMM (4-12)
[2018-10-26 11:19] LABS: INR 0.9; PT Patient Result 10.3 SECS
[2018-10-26 11:42] LABS: Calcium 8.6 MG/DL (8.5-10.1); Osmolality,Calculated 286.8 MOS/KG (273-304)
[2018-10-26] MEDS ORDERED: ONDANSETRON 4 MG/2 ML VIAL IV PRN (12:05)
[2018-10-26] MEDS ORDERED: ACETAMINOPHEN 325 MG TABLET PO PRN (12:05)
[2018-10-26] MEDS ORDERED: MORPHINE 4 MG/1 ML VIAL IV PRN (14:58)
[2018-10-26] MEDS ORDERED: ZALEPLON 5 MG CAPSULE PO PRN (14:58)
[2018-10-26] MEDS ORDERED: MAGNESIUM SULF RIDER 2 GM in PREMIX 1 EACH IV PRN (14:58)
[2018-10-26] MEDS ORDERED: NITROGLYCERIN SL 0.4 MG TABLET SL PRN (14:58)
[2018-10-26] MEDS ORDERED: POTASSIUM CHLORIDE 20 MEQ TABLET PO PRN (14:58)
[2018-10-26] MEDS ORDERED: ATORVASTATIN 10 MG TABLET PO SCH (15:00)
[2018-10-26] MEDS: ENOXAPARIN 100 MG/ML SYRINGE SUBCUT SCH (15:58)
[2018-10-26] MEDS: ATORVASTATIN 20 MG TABLET PO SCH (15:58)
[2018-10-26] MEDS: ASPIRIN EC 81 MG TABLET PO SCH (15:58)
[2018-10-26] MEDS: FUROSEMIDE 40 MG/4 ML VIAL IV SCH (15:59)
[2018-10-26 16:12] LABS: Apearance,Urine CLEAR (Clear); Bacteria,Urine Occasional /HPF (Few); Bilirubin,Urine Negative (Negative); Blood, Urine Negative (Negative); Glucose,Urine (UA) Negative (Negative); Hyaline Casts,Urine 1 /LPF (0-3); Ketones,Urine Negative (Negative); Mucus,Urine Occasional /LPF (Occasional); Nitrite,Urine Negative (Negative); Protein,Urine Negative; RBC,Urine 1 /HPF (0-4); Squamous Epithelial Cell,Urine Occasional /HPF (0-10); Urine Color Yellow (Yellow); Urine Specific Gravity 1.014 (1.001-1.035); Urine Urobilinogen < 2.0 EU/DL (0.2-1.0); WBC,Urine 3 /HPF (0-6)
[2018-10-26] MEDS: SOTALOL 80 MG TABLET PO SCH (21:09)
[2018-10-26] MEDS: TERAZOSIN 10 MG CAPSULE PO SCH (21:10)
[2018-10-26] MEDS: PROBENECID 500 MG TABLET PO SCH (21:10)
[2018-10-27] MEDS: ENOXAPARIN 100 MG/ML SYRINGE SUBCUT SCH (04:12)
[2018-10-27 04:45] LABS: Basophils % 0.8 % (0.0-0.8); Eosinophils # 0.1 10*3/uL (0.0-0.87); Eosinophils % 2.7 % (0.00-10.9); Hematocrit 29.3 VOL% (42.0-52.0); Hemoglobin 9.9 GM/DL (14.0-18.0); Immature Granulocytes % 0.6 %; Immature Granulocytes Absolute 0.03 #; Lymphocytes # 1.6 10*3/uL (1.4-4.0); Lymphocytes % 30.3 % (21.2-54.2); Mean Corpuscular HGB Conc 33.8 GM/DL (32-36); Mean Corpuscular Volume 96.4 FL (87-102); Mean Platelet Volume 9.3 FL (9.6-12.0); Monocytes % 10.9 % (1.7-12.7); Neutrophils % 54.7 % (38.7-73.9); Platelet Count 133 T/CUMM (130-400); Red Blood Count 3.04 MC/CUMM (3.8-5.5); Red Cell Distribution Width 13.7 % (9.3-17.3); White Blood Count 5.2 T/CUMM (4-12)
[2018-10-27 05:28] LABS: Calcium 8.2 MG/DL (8.5-10.1); Osmolality,Calculated 284.1 MOS/KG (273-304); Thyroid Stimulating Hormone 3.87 uIU/ml (0.358-3.74)
[2018-10-27] MEDS ORDERED: FUROSEMIDE 80 MG TABLET PO SCH (09:00)
[2018-10-27] MEDS ORDERED: ENOXAPARIN 40 MG/0.4 ML SYRINGE SUBCUT SCH (09:00)
[2018-10-27] MEDS: PROBENECID 500 MG TABLET PO SCH ×2 (09:00→21:05)
[2018-10-27] MEDS ORDERED: ASPIRIN 325 MG TABLET PO ONE (09:01)
[2018-10-27] MEDS ORDERED: DIAZEPAM 5 MG TABLET PO ONE (09:01)
[2018-10-27] MEDS ORDERED: diphenhydrAMINE CAP 25 MG CAPSULE PO ONE (09:01)
[2018-10-27] MEDS ORDERED: ASPIRIN CHEW 81 MG TABLET PO ONE (09:04)
[2018-10-27] MEDS: FUROSEMIDE 40 MG/4 ML VIAL IV SCH (09:08)
[2018-10-27] MEDS: SOTALOL 80 MG TABLET PO SCH ×2 (09:58→21:05)
[2018-10-27] MEDS: ATORVASTATIN 20 MG TABLET PO SCH (09:58)
[2018-10-27] MEDS: MAGNESIUM CHLORIDE 64 MG TABLET PO SCH (09:59)
[2018-10-27] MEDS: PANTOPRAZOLE 40 MG TABLET PO SCH (10:00)
[2018-10-27] MEDS: SODIUM CHLORIDE 0.9% 1,000 ML IV SCH ×2 (10:37→21:06)
[2018-10-27] MEDS: ASPIRIN EC 81 MG TABLET PO SCH (10:37)
[2018-10-27] MEDS ORDERED: LIDOCAINE 1% 20 ML VIAL ONE (11:19)
[2018-10-27] MEDS ORDERED: MIDAZOLAM 2 MG/2 ML VIAL ONE (11:19)
[2018-10-27] MEDS ORDERED: fentaNYL 100 MCG/2 ML VIAL ONE (11:19)
[2018-10-27] MEDS: TERAZOSIN 10 MG CAPSULE PO SCH (21:05)
[2018-10-28 04:24] LABS: Basophils % 0.5 % (0.0-0.8); Eosinophils # 0.1 10*3/uL (0.0-0.87); Hematocrit 29.2 VOL% (42.0-52.0); Hemoglobin 9.7 GM/DL (14.0-18.0); Immature Granulocytes % 0.4 %; Immature Granulocytes Absolute 0.03 #; Lymphocytes # 1.2 10*3/uL (1.4-4.0); Lymphocytes % 14.7 % (21.2-54.2); Mean Corpuscular HGB Conc 33.2 GM/DL (32-36); Mean Corpuscular Volume 98.6 FL (87-102); Mean Platelet Volume 9.5 FL (9.6-12.0); Monocytes % 10.3 % (1.7-12.7); Neutrophils % 73.1 % (38.7-73.9); Platelet Count 130 T/CUMM (130-400); Red Blood Count 2.96 MC/CUMM (3.8-5.5); Red Cell Distribution Width 13.8 % (9.3-17.3)
[2018-10-28 04:41] LABS: Alanine Aminotransferase 13 U/L (16-61); Albumin 2.3 G/DL (3.4-5.0); Alkaline Phosphatase 52 U/L (45-117); Aspartate Amino Transferase 12 U/L (0-37); Bilirubin,Total < 0.39 MG/DL (0.2-1.0); Blood Urea Nitrogen 19 MG/DL (7-18); Calcium 7.7 MG/DL (8.5-10.1); Glucose 93 MG/DL (74-106); Osmolality,Calculated 287.8 MOS/KG (273-304); Total Protein 5.4 G/DL (6.4-8.3)
[2018-10-28 08:11] VITALS: BP 161/72
[2018-10-28] MEDS: ATORVASTATIN 20 MG TABLET PO SCH (08:55)
[2018-10-28] MEDS: PANTOPRAZOLE 40 MG TABLET PO SCH (08:55)
[2018-10-28] MEDS: PROBENECID 500 MG TABLET PO SCH (08:55)
[2018-10-28] MEDS: ASPIRIN EC 81 MG TABLET PO SCH (08:55)
[2018-10-28] MEDS: MAGNESIUM CHLORIDE 64 MG TABLET PO SCH (08:55)
[2018-10-28] MEDS: SOTALOL 80 MG TABLET PO SCH (08:55)
[2018-10-28] MEDS ORDERED: ISOSORBIDE MONONITRATE 30 MG TABLET PO SCH (10:00)
[2018-10-28] MEDS ORDERED: TICAGRELOR 90 MG TABLET PO SCH (10:59)
[2018-10-29] MEDS ORDERED: APIXABAN 2.5 MG TABLET PO SCH (21:00)
== END 2018-10-28 13:01 | disposition home or self-care (01) ==
LOC: N.ED 10:31 → N.EDINP 10:31 → SUATTDRO 12:05 → N.EDINP 12:34 → N.TELEN 13:07
PROVIDERS: ADMIT Internal Medicine; ATTEND Family Medicine

== ENCOUNTER 2020-09-25 06:48 | Inpatient (IN) ==
[2020-09-25] MEDS ORDERED: ONDANSETRON 4 MG/2 ML VIAL IV PRN (09:49)
[2020-09-25] MEDS ORDERED: MORPHINE 4 MG/1 ML VIAL IV PRN (09:50)
[2020-09-25] MEDS ORDERED: NITROGLYCERIN SL 0.4 MG TABLET SL PRN (09:50)
[2020-09-25] MEDS ORDERED: ACETAMINOPHEN 325 MG TABLET PO PRN (09:53)
[2020-09-25] MEDS ORDERED: DOCUSATE SODIUM 100 MG CAPSULE PO PRN (09:55)
[2020-09-25] MEDS ORDERED: ALUMINUM/MAGNES/SIMETH MAX STR 30 ML UDCUP PO PRN (09:55)
[2020-09-25] MEDS ORDERED: MAGNESIUM HYDROXIDE SUSP 30 ML UDCUP PO PRN (09:55)
[2020-09-25 10:47] LABS: Calcium 9.1 MG/DL (8.5-10.1); Osmolality,Calculated 288.3 MOS/KG (273-304); Potassium 3.7 MMOL/L (3.5-5.1)
[2020-09-25] MEDS: NITROGLYCERIN 2% OINT 1 INCH/GM PACK TOP SCH ×2 (12:09→17:48)
[2020-09-25] MEDS: ENOXAPARIN 100 MG/ML SYRINGE SUBCUT SCH ×2 (12:09→23:14)
[2020-09-25 13:19] LABS: CKMB % 4.2 %; High Sensitive Troponin I* 1295.9 ng/L (0-78)
[2020-09-25 16:44] LABS: CKMB % 4.9 %
[2020-09-25] MEDS: SOTALOL 80 MG TABLET PO SCH (21:49)
[2020-09-25] MEDS: carvediloL 3.125 MG TABLET PO SCH (21:49)
[2020-09-25] MEDS: MELATONIN 3 MG TABLET PO PRN (23:15)
[2020-09-26] MEDS: NITROGLYCERIN 2% OINT 1 INCH/GM PACK TOP SCH ×4 (01:00→17:14)
[2020-09-26 06:51] LABS: Basophils # 0.1 10*3/uL (0.0-0.2); Basophils % 0.6 % (0.0-0.8); Eosinophils # 0.2 10*3/uL (0.0-0.87); Eosinophils % 1.9 % (0.00-10.9); Hematocrit 37.9 VOL% (42.0-52.0); Hemoglobin 12.7 GM/DL (14.0-18.0); Immature Granulocytes % 0.4 %; Immature Granulocytes Absolute 0.03 #; Lymphocytes # 1.4 10*3/uL (1.4-4.0); Lymphocytes % 18.5 % (21.2-54.2); Mean Corpuscular HGB Conc 33.5 GM/DL (32-36); Mean Platelet Volume 9.2 FL (9.6-12.0); Monocytes % 10.7 % (1.7-12.7); Neutrophils % 67.9 % (38.7-73.9); Platelet Count 176 T/CUMM (130-400); Red Blood Count 3.83 MC/CUMM (3.8-5.5); Red Cell Distribution Width 13.8 % (9.3-17.3); White Blood Count 7.7 T/CUMM (4-12)
[2020-09-26 07:19] LABS: Calcium 8.7 MG/DL (8.5-10.1); Potassium 3.5 MMOL/L (3.5-5.1)
[2020-09-26 07:20] LABS: Risk Ratio 2.87; Thyroid Stimulating Hormone 4.72 uIU/ml (0.358-3.74); VLDL CHOLESTEROL 20.8 MG/DL
[2020-09-26] MEDS: SODIUM CHLORIDE 0.9% 1,000 ML IV SCH ×2 (08:40→18:25)
[2020-09-26] MEDS: SOTALOL 80 MG TABLET PO SCH ×2 (08:42→21:15)
[2020-09-26] MEDS: ATORVASTATIN 20 MG TABLET PO SCH (08:42)
[2020-09-26] MEDS: carvediloL 3.125 MG TABLET PO SCH ×2 (08:42→21:16)
[2020-09-26] MEDS: ASPIRIN EC 81 MG TABLET PO SCH (08:42)
[2020-09-26] MEDS: ISOSORBIDE MONONITRATE 30 MG TABLET PO SCH (08:42)
[2020-09-26] MEDS: PANTOPRAZOLE 40 MG TABLET PO SCH (08:43)
[2020-09-26] MEDS ORDERED: DIAZEPAM 5 MG TABLET PO ONE (13:00)
[2020-09-26] MEDS ORDERED: diphenhydrAMINE CAP 25 MG CAPSULE PO ONE (13:00)
[2020-09-26] MEDS ORDERED: LIDOCAINE 1% 20 ML VIAL ONE (13:50)
[2020-09-26] MEDS ORDERED: MIDAZOLAM 2 MG/2 ML VIAL ONE (14:06)
[2020-09-26] MEDS ORDERED: fentaNYL 100 MCG/2 ML VIAL ONE (14:06)
[2020-09-26] MEDS ORDERED: HEPARIN 5,000 UNIT/1 ML VIAL ONE (14:46)
[2020-09-26] MEDS ORDERED: TIROFIBAN 5,000 MCG/100 ML PREMIX IV ONE (14:50)
[2020-09-26] MEDS ORDERED: TIROFIBAN 5,000 MCG/100 ML PREMIX IV SCH (14:58)
[2020-09-26] MEDS ORDERED: NITROGLYCERIN DRIP 50 MG/250 ML BOTTLE IV ONE (15:34)
[2020-09-26] MEDS ORDERED: TICAGRELOR 90 MG TABLET ONE (15:51)
[2020-09-26] MEDS: MELATONIN 3 MG TABLET PO PRN (21:16)
[2020-09-26] MEDS: TICAGRELOR 90 MG TABLET PO SCH (21:21)
[2020-09-27] MEDS: NITROGLYCERIN 2% OINT 1 INCH/GM PACK TOP SCH ×2 (01:00→05:55)
[2020-09-27 04:07] LABS: Basophils # 0.1 10*3/uL (0.0-0.2); Basophils % 0.7 % (0.0-0.8); Eosinophils # 0.2 10*3/uL (0.0-0.87); Eosinophils % 2.2 % (0.00-10.9); Hematocrit 33.9 VOL% (42.0-52.0); Hemoglobin 11.6 GM/DL (14.0-18.0); Immature Granulocytes % 0.6 %; Immature Granulocytes Absolute 0.04 #; Mean Corpuscular HGB Conc 34.2 GM/DL (32-36); Mean Platelet Volume 9.1 FL (9.6-12.0); Monocytes % 10.4 % (1.7-12.7); Neutrophils % 72.1 % (38.7-73.9); Platelet Count 167 T/CUMM (130-400); Red Blood Count 3.46 MC/CUMM (3.8-5.5); Red Cell Distribution Width 13.8 % (9.3-17.3)
[2020-09-27 04:44] LABS: Calcium 8.6 MG/DL (8.5-10.1); Osmolality,Calculated 294.6 MOS/KG (273-304); Potassium 3.4 MMOL/L (3.5-5.1)
[2020-09-27 08:22] VITALS: BP 131/67
[2020-09-27] MEDS ORDERED: POTASSIUM CHLORIDE 20 MEQ TABLET PO ONE (08:28)
[2020-09-27] MEDS: TICAGRELOR 90 MG TABLET PO SCH (08:44)
[2020-09-27] MEDS: ASPIRIN EC 81 MG TABLET PO SCH (08:45)
[2020-09-27] MEDS: SOTALOL 80 MG TABLET PO SCH (08:45)
[2020-09-27] MEDS: PANTOPRAZOLE 40 MG TABLET PO SCH (08:46)
[2020-09-27] MEDS: carvediloL 3.125 MG TABLET PO SCH (08:46)
[2020-09-27] MEDS: ATORVASTATIN 20 MG TABLET PO SCH (08:46)
[2020-09-27] MEDS: ISOSORBIDE MONONITRATE 30 MG TABLET PO SCH (08:46)
[2020-09-27] MEDS ORDERED: POTASSIUM CHLORIDE 20 MEQ/15 ML UDCUP PO ONE (09:41)
== END 2020-09-27 11:02 | disposition home or self-care (01) | DRG 247 ==
LOC: N.TELEN 08:16 → SUATTDRO 08:16
PROVIDERS: ADMIT Internal Medicine; ATTEND Internal Medicine Cardiovascular Disease